=== PATIENT | male | born 1985 | race Caucasian/White ===

== ENCOUNTER 2018-12-12 11:58 | Outpatient (REF) | payer BC, SELFPAY ==
[2018-12-12 13:34] LABS: Anion Gap 7.4 mmol/L (3-11); BUN 14 mg/dL (7-18); CO2 28.6 mmol/L (21.0-32.0); CREATININE 0.94 mg/dL (0.70-1.30); Calcium 8.8 mg/dL (8.5-10.1); Chloride 106 mmol/L (98-107); Cholesterol 197 mg/dL (50-200); Glucose 98 mg/dL (70-100); HDL Cholesterol 50 mg/dL (40-60); LDL CHOLESTEROL 120 mg/dL (<100); Potassium 4.3 mmol/L (3.5-5.1); Sodium 142 mmol/L (136-145); Triglyceride 86 mg/dL (30-150)
== END 2018-12-12 12:18 ==
LOC: NCHCN 11:58
PROVIDERS: PCP Family Medicine; Visit Provider Nurse Practitioner Family
DX: Z00.00 Encounter for general adult medical examination without abnormal findings (principal); E78.5 Hyperlipidemia, unspecified
CPT/HCPCS: 80048; 80061; 83721

== ENCOUNTER 2019-01-24 10:40 | Emergency (ER) | payer BC, SELFPAY ==
[2019-01-24 10:52] VITALS: BP 138/87; PULSE 68; RESP 15; TEMP 36.9; O2SAT 98
--- NOTE | 2019-01-24 11:00 | ED.GENADUL_ITS ---
Discharge Plan Disposition Patient Disposition: HOME Condition: Stable Discharge Details Chief Complaint: Orthopedic Clinical Impression: Left shoulder strain Primary Care Provider: Laxmi Banks ED Provider: Alden De La Cruz Home Meds and New Rx's Prescriptions: No Action fluoxetine 40 MG capsule 60 mg PO DAILY RF: 0 cetirizine [Zyrtec] 10 MG tablet 10 mg PO DAILY RF: 0 acyclovir 200 MG capsule 200 mg PO DAILY RF: 0 lysine [L-Lysine] 500 MG tablet 500 mg PO DAILY RF: 0 multivitamin 1 EACH capsule 1 cap PO DAILY RF: 0 Mineral Electrolyte Complex 1 tab PO DAILY RF: 0 Desicated Liver Tab 1 tab PO DAILY RF: 0 acetaminophen [Mapap Extra Strength] 500 MG tablet 1 tab PO PRN PRNRF: 0 ibuprofen 200 MG tablet 1 tab PO PRN PRNRF: 0 ibuprofen 800 MG tablet 800 mg PO TID PRN PRNQty: 30 RF: 0 acyclovir 800 MG tablet 800 mg PO DAILY Qty: 30 RF: 0 Discharge Instructions Instructions: Shoulder Sprain (ED) Additional Instructions: 1. Drink plenty of fluids. 2. Continue all medications as prescribed. 3. Acetaminophen 1000mg every 4 hours (up to 5 time a day) and/or ibuprofen 600mg every 6 hours as needed for fever or pain. 4. Wear sling for comfort. Frequent hanging arm rotations. Return to the Emergency Department (ED) if your condition worsens, does not improve as expected, or for ANY other concerns. Specifically, return if you have new or uncontrolled pain, worsening fever, difficulty breathing, vomiting, or are unable to drink fluids. Medical Decision Making Presents with persistent shoulder pain and local ecchymosis associated with a recent traumatic fall while snowboarding. Exam significant for local tenderness at the AC joint with no clinical evidence of joint instability. Also has an ecchymotic patch medially medial to the shoulder joint. Otherwise, nonfocal exam within normal peripheral neurovascular exam. Shoulder x-ray nondiagnostic. Discussed findings with patient with recommendations for wearing a sling as needed and outpatient follow-up as needed. Pt evaluated immediately prior to discharge with improved symptoms, normal vital signs, and tolerating PO. The patient feels appropriate for discharge home. Discussed clinical/diagnostic findings. Discharged with a clear plan for outpatient follow up. Given usual and customary return instructions prior to discharge. Imaging Data Radiologic Study: Attestation: I personally reviewed and interpreted this imaging study as follows: Imaging: X-Ray My impression: No acute distal clavicle, proximal humeral head, or obvious scapular fracture appreciated. Humeral head is in the appropriate anatomical position relative to the glenoid. Interpreted independently and contemporaneously by myself Radiologist's impression: Not available HPI 33-year-old gent with unremarkable past medical history. Presents with severe left shoulder/proximal arm pain associated with injury while snowboarding. Describes falling with a significant impact to his left shoulder and having resultant persistent pain as well as now inability for functional use due to pain associated with lifting. Denies significant head impact, LOC, neck pain, back pain, chest wall pain, difficulty breathing, palpitations, or abdominal pain. He has no loss of motion/loss of sensation distally General Date/Time Provider Initiated Documentation: 01/24/19 10:55 . Related Data Home Medications Medication Instructions Recorded Confirmed Desicated Liver Tab 1 tab PO DAILY 06/12/15 01/24/19 Mineral Electrolyte Complex 1 tab PO DAILY 06/12/15 01/24/19 acyclovir 200 mg PO DAILY 06/12/15 01/24/19 cetirizine [Zyrtec] 10 mg PO DAILY 06/12/15 01/24/19 fluoxetine 60 mg PO DAILY 06/12/15 01/24/19 lysine [L-Lysine] 500 mg PO DAILY 06/12/15 01/24/19 multivitamin 1 cap PO DAILY 06/12/15 01/24/19 acetaminophen [Tylenol] 1 tab PO PRN PRN 09/07/15 01/24/19 ibuprofen 1 tab PO PRN PRN 09/07/15 01/24/19 acyclovir 800 mg PO DAILY #30 tablet 09/08/15 01/24/19 ibuprofen 800 mg PO TID PRN PRN #30 tab 09/08/15 01/24/19 Previous Rx's Medication Instructions Recorded acyclovir 800 mg PO DAILY #30 tablet 09/08/15 ibuprofen 800 mg PO TID PRN PRN #30 tab 09/08/15 Allergies Allergy/AdvReac Type Severity Reaction Status Date / Time enviornmental Allergy Mild stuffy Uncoded 01/24/19 10:55 General Stated Complaint: Orthopedic RUPERTO: 4 Review of Systems Review of Systems All systems are reviewed and are unremarkable except as noted in HPI and below: CONSTITUTIONAL: no fevers/chills, no weakness or change in appetite EYES: no change in vision HEENT: no throat pain or difficulty swallowing; no neck pain CARDIOVASCULAR: no chest pain, palpitations, leg swelling, or diaphoresis RESPIRATORY: no cough, dyspnea, wheezing GASTROINTESTINAL: no abdominal pain, melena, nausea/emesis GENITOURINARY: no dysuria, flank pain, MUSCULOSKELETAL: no pack pain, left shoulder with anterior pain at the AC joint. There is an area of new ecchymosis anterior lateral chest immediately medial to the shoulder joint INTEGUMENTARY: no rash, no wounds NEUROLOGIC: no headache, focal weakness, difficulty with speech, numbness PSYCHIATRIC: no confusion, no anxiety HEME: no easy bruising or bleeding ALLERGIC: no urticaria PFSH Social History Smoking/Tobacco Use Status: Never Alcohol Intake: current Alcohol Intake frequency: 0-2 drinks per day Alcohol type: beer Drug use: Daily Substance use type: marijuana Do you feel safe at home: Yes Do you feel safe in your relationship?: Yes Exam Narrative Exam Narrative: Nursing note and vital signs have been reviewed and noted. GENERAL: alert, active, no acute distress, well -hydrated, well-nourished HEENT: atraumatic/normocephalic, PERRLA, EOMI, conjunctiva clear, external ears/canals normal, nasal mucosa normal NECK: supple, full range of motion CARDIOVASCULAR: nl pulses, no edema PULMONARY: nl effort, no audible wheezing or stridor ABDOMEN: non-distended EXTREMITY: normal muscle tone, all joints except for left with FROM, left shoulder: Humeral head is palpable in the glenoid. No significant humeral head tenderness. There is no scapula tenderness until the AC joint with a large ecchymotic patch immediately medial to the ACJ in the anterior lateral chest. No significant pain with passive external/internal rotation, passive flexion/extension; normal neurovascular exam distally. NUERO: normal mentation, moving all extremities, normal stance and gait, PSYCH: alert and oriented SKIN: no new rashes or lesions Course Vital Signs Temperature 98.4 F 01/24/19 10:52 Pulse 68 01/24/19 10:52 Respiratory Rate 15 01/24/19 10:52 Blood Pressure 138/87 01/24/19 10:52 Pulse Oximetry 98 01/24/19 10:52 Temperature 98.4 F 01/24/19 10:52 Temperature Source Temporal Artery Scan 01/24/19 10:52 Pulse 68 01/24/19 10:52 Respiratory Rate 15 01/24/19 10:52 Blood Pressure 138/87 01/24/19 10:52 Blood Pressure Position Sitting 01/24/19 10:52 Pulse Oximetry 98 01/24/19 10:52 Oxygen Delivery Method Room Air 01/24/19 10:52 Oxygen Flow Rate 0 01/24/19 10:52 Pain Level 4 01/24/19 10:52
--- NOTE | 2019-01-24 11:01 | DI.RAD_ITS ---
SYMPTOM/DIAGNOSIS: FALL WITH LT SHOULDER PAIN LEFT SHOULDER: There is no evidence of a fracture or dislocation. No soft tissue, bony or joint abnormality is seen.
== END 2019-01-24 12:15 | disposition home or self-care (01) ==
PROVIDERS: Emergency Provider Emergency Medicine; PCP Nurse Practitioner Family
DX: S46.912A Strain of unspecified muscle, fascia and tendon at shoulder and upper arm level, left arm, initial encounter (principal); V00.311A Fall from snowboard, initial encounter
CPT/HCPCS: 99283; 73030; 99282

== ENCOUNTER 2019-06-05 00:30 | Outpatient (CLI) | payer BC, SELFPAY ==
--- NOTE | 2019-06-05 15:00 | DI.US_ITS ---
SYMPTOM/DIAGNOSIS: TESTICULAR MASS LT, N50.9 SCROTAL ULTRASOUND: No priors for comparison. The right testicle measures 4.5 x 2.4 x 4.0 cm. It is homogeneous with normal blood flow. No evidence of torsion or intratesticular mass. The right epididymis is unremarkable. The left testicle measures 3.2 x 2.3 x 2.9 cm. It is homogeneous with normal blood flow. No evidence of torsion or mass. The left epididymis is unremarkable. Inferior to the left testicle there is a 0.7 x 0.7 x 0.6 cm hypoechoic well circumscribed nodular area present. There does not appear to be internal blood flow. Blood flow is seen around the lesion. IMPRESSION: 0.7 cm area inferior to the left testicle corresponding to the palpable abnormality. The finding is nonspecific. This may represent a benign lesion such as a sperm granuloma, scrotal epididymal mass, post vasectomy changes of the epididymis should be considered. Malignancy cannot be entirely excluded.
== END 2019-06-05 00:50 ==
PROVIDERS: PCP Nurse Practitioner Family; Visit Provider Nurse Practitioner Family
DX: N50.9 Disorder of male genital organs, unspecified (principal)
CPT/HCPCS: 76870

== ENCOUNTER 2022-06-01 16:48 | Outpatient (REF) | payer BC, SELFPAY | END 2022-06-01 16:49 | disposition home or self-care (01) | LOC: LBN 16:48 | PROVIDERS: PCP Nurse Practitioner Family; Visit Provider Nurse Practitioner Family | DX: J02.9 Acute pharyngitis, unspecified (principal) | CPT/HCPCS: 87077; 87070 ==

== ENCOUNTER 2025-03-30 22:02 | Outpatient (REF) | payer OTHER, SELFPAY ==
[2025-03-30 21:59] LABS: Hemoglobin A1C 5.1 % (<5.7)
[2025-03-30 22:00] LABS: Calculated LDL 104 mg/dL (<100); Cholesterol 207 mg/dL (<200); HDL Cholesterol 73 mg/dL (>or=40); Triglyceride 152 mg/dL (<150)
== END 2025-03-30 22:03 | disposition home or self-care (01) ==
LOC: NCHCN 22:02
PROVIDERS: Visit Provider Student in an Organized Health Care Education/Training Program
DX: Z13.220 Encounter for screening for lipoid disorders (principal); Z13.1 Encounter for screening for diabetes mellitus
CPT/HCPCS: 80061; 83036

== ENCOUNTER 2025-07-12 16:11 | Outpatient (CLI) | payer OTHER, SELFPAY ==
[2025-07-12 17:08] LABS: Anion Gap 8.7 mmol/L (3-11); BUN 13 mg/dL (7-18); CO2 28.3 mmol/L (21.0-32.0); Calcium 9.0 mg/dL (8.5-10.1); Chloride 103 mmol/L (98-107); Estimated GFR 110.04 (mL/min/1.73m2); Glucose 89 mg/dL (74-106); Potassium 3.7 mmol/L (3.5-5.1); Sodium 140 mmol/L (136-145)
== END 2025-07-12 16:12 | disposition home or self-care (01) ==
LOC: LBO 16:12
PROVIDERS: Visit Provider Student in an Organized Health Care Education/Training Program
DX: I10 Essential (primary) hypertension (principal)
CPT/HCPCS: 36415; 80048

== ENCOUNTER 2025-09-19 15:31 | Outpatient (REF) | payer OTHER, SELFPAY | END 2025-09-19 15:32 | disposition home or self-care (01) | LOC: NCHCN 15:31 | PROVIDERS: Visit Provider Student in an Organized Health Care Education/Training Program | DX: I10 Essential (primary) hypertension (principal) | CPT/HCPCS: 82043; 82570 ==